=== PATIENT | female | born 1990 | race Caucasian/White ===

== ENCOUNTER → 2016-07-04 | Outpatient (CLI) | payer BC ==
--- NOTE | 2016-07-04 11:25 | DX ---
Left Wrist, 4 views including a navicular view History: Pain post trauma. Snowboarding injury on June 24, 2016. Radial pain. M25.532. Findings: No fracture or dislocation is identified. The navicular bone is specifically normal. There is mild widening of the joint space between the navicular and the lunate. Impression: Possible injury to the ligament between the scaphoid and the lunate. No fracture.
== END ==
LOC: BMCIMAGING 10:56
PROVIDERS: ATTEND Internal Medicine
DX: M25.532 Pain in left wrist (principal)

== ENCOUNTER → 2018-05-17 | Outpatient (CLI) | payer BC, MEDICAID | LOC: FIMAGING 10:19 | PROVIDERS: ATTEND Family Medicine | DX: M25.461 Effusion, right knee (principal) ==